=== PATIENT | male | born 1975 | race Caucasian/White ===

== ENCOUNTER 2018-07-13 12:19 | Day surgery (SDC) | payer OTHER ==
[2018-07-13] MEDS ORDERED: LIDOCAINE 2% (SDV) 5 ML INJ (14:15)
[2018-07-13] MEDS ORDERED: PROPOFOL 60 ML (14:15)
== END 2018-07-13 15:33 | disposition home or self-care (01) ==
LOC: GIL 12:19
DX: K92.1 Melena (principal); K64.8 Other hemorrhoids; K20.9 Esophagitis, unspecified; K29.70 Gastritis, unspecified, without bleeding
CPT/HCPCS: 43239; 88305; 88312